=== PATIENT | male | born 1990 | race Caucasian/White ===

== ENCOUNTER 2019-11-26 23:50 | Emergency (ER) | payer OTHER, SELFPAY ==
[2019-11-26 23:55] VITALS: BP 203/106; PULSE 72; RESP 20; TEMP 36.8; O2SAT 99
[2019-11-27 00:11] VITALS: BP 161/102; PULSE 74; RESP 18; O2SAT 98
--- NOTE | 2019-11-27 00:28 | ED.DENTAL ---
HPI - Dental/Oral General Chief complaint: Dental/Oral Stated complaint: dental pain Time Seen by Provider: 11/27/19 00:12 Source: patient Mode of arrival: ambulatory Limitations: no limitations History of Present Illness HPI Narrative: Patient is a 29-year-old male who presents to the emergency department with complaint of toothache. Patient complaints of right lower molar pain. Patient has history of dental decay with filling to that tooth and reports he has had pain over the past couple of months. Patient states he fractured the tooth a few days ago and has had constant pain since that time. Patient states he saw a dentist a few weeks ago and was prescribed amoxicillin for infection and referred to [facility] for further care of his tooth. Patient states he just turned in the paperwork and has yet to receive an appointment. Patient was seen at [facility] and [facility] yesterday and prescribed clindamycin, ibuprofen, and tramadol. Patient has not had any relief, thus presents to the emergency department today. Patient denies any other symptoms or complaints. MD Complaint: tooth pain Location: Tooth # (30) Onset (ago): month(s) Duration: worsening (Was intermittent, now constant past few days) Relieving factors: nothing Context: history of dental caries Treatment prior to arrival: oral analgesic and other (Antibiotic) Related Data Allergies Allergy/AdvReac Type Severity Reaction Status Date / Time bee pollen Allergy Unknown Swelling Verified 11/27/19 00:01 pollen extracts Allergy Unknown Swelling Verified 11/27/19 00:01 Review of Systems Review of Systems: All systems reviewed & are unremarkable except as noted in HPI and below PMFSH Past Medical History Medical History (Updated 11/27/19 @ 00:39 by Tasha Davis MD) No significant past medical history Family History Family History (Updated 07/11/16 @ 11:12 by DOCTOR UNKNOWN) Mother Family history of malignant neoplasm of breast in first degree relative Grandparent Carcinoma of colon Social History Social History Smoking status: Current every day smoker Alcohol intake: current Substance use type: marijuana Gender identity (if verbalized by the patient): Male Exam Const: General: cooperative, no acute distress and alert Nutritional Appearance: obese Orientation/consciousness: patient oriented x3 Limitations: no limitations HENMT: Mouth: Yes lip normal and Yes moist mucous membranes Teeth and gingiva: abnormal tooth and associated gingiva lower right first molar tender, enamel fractured, dentin fractured, pulp exposed and other (decay present); without any associated gingival edema and without associated gingival fluctuance and caries Throat: posterior oropharynx normal and uvula midline Neck: Neck: normal visual inspection, no lymphadenopathy, no anterior neck swelling and No submandibular swelling Resp: Effort & Inspection: normal respiratory effort Skin: General skin exam: normal color Neuro: General: patient oriented x3 Cognition (Neuro): normal cognition Speech: normal speech Extrem: General: normal to inspection, full ROM and no clubbing, cyanosis or edema Psych: Mental Status: mental status grossly normal Affect: normal affect Attitude: cooperative Course Course Emergency Course: Patient advised importance of continuing current medications and following up with dentist for further care. Patient advised on the importance of dental follow-up as he will require dental procedure to address his pathology causing pain. Vital Signs Vital signs: Vital Signs Temperature 98.3 F 11/26/19 23:55 Pulse Rate 72 11/26/19 23:55 Respiratory Rate 20 11/26/19 23:55 Blood Pressure 203/106 H 11/26/19 23:55 Pulse Oximetry 99 11/26/19 23:55 Temperature 98.3 F 11/26/19 23:55 Pulse Rate 74 11/27/19 00:11 Respiratory Rate 18 11/27/19 00:11 Blood Pressure 161/102 H 11/27/19 00:11 Pulse Oximetry
== END 2019-11-27 01:02 | disposition home or self-care (01) ==
PROVIDERS: Emergency Provider Emergency Medicine
DX: K08.89 Other specified disorders of teeth and supporting structures (principal); F17.200 Nicotine dependence, unspecified, uncomplicated
CPT/HCPCS: 99281

== ENCOUNTER 2020-07-25 19:40 | Emergency (ER) | payer OTHER, SELFPAY ==
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
--- NOTE | ~2020-07-25 | CT_ITS ---
EXAMINATION: CT abdomen pelvis wo con DATE: 07/25/2020 21:44 INDICATION: Right abdominal and back pain TECHNIQUE: Computed tomography (CT) of the abdomen and pelvis was performed without intravenous contr ast. Automated exposure control and iterative reconstruction technique were employed. Exam dose: 123 1.11 mGy-cm total exam DLP. COMPARISON: 07/25/2020 scrotal ultrasound/Doppler FINDINGS: Normal heart size. No pericardial or pleural effusion. Minimal focal groundglass infiltrate or atelectasis in the posterolateral right lower lobe; the lung bases are otherwise clear. Small sliding hiatal hernia. The liver, gallbladder, bile ducts, spleen, pancreas, pancreatic duct and adrenal glands are unremark able. 4 mm nonobstructing mid right renal calculus. 2.5 mm nonobstructing upper pole left renal calculus. No renal space occupying mass lesion is evident . Normal caliber of the abdominal aorta. No intraperitoneal or retroperitoneal or pelvic mass lesion or adenopathy or ascites. The urinary bladder is unremarkable. The prostate gland is unremarkable excep t for minimal calcification. Normal appendix. No bowel obstruction, bowel wall thickening, pneumatosis or intraperitoneal free air . Skeletal structures are unremarkable. IMPRESSION: Small sliding hiatal hernia 4 mm nonobstructing mid right renal calculus and 2.5 mm nonobstructing upper pole left renal calculus Reviewed, dictated and finalized at Location A. Reviewed, dictated and finalized at location A. IMPRESSION: Small sliding hiatal hernia 4 mm nonobstructing mid right renal calculus and 2.5 mm nonobstructing upper po le left renal calculus
[2020-07-25 19:42] VITALS: BP 157/99; PULSE 106; RESP 18; TEMP 36.3; O2SAT 100
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
[2020-07-25] MEDS: IBUPROFEN 600 MG TABLET PO (20:44)
--- NOTE | 2020-07-25 20:53 | PC.NURSE ---
Patient to ultrasound via wheelchair.
[2020-07-25 21:08] LABS: Add Urine Microscopic? NO; Appearance Urine Clear (Clear); Bilirubin Urine Negative (Negative); Blood Urine Negative (Negative); Color Urine Yellow (Yellow); Glucose Urine UA Negative (Negative); Ketones Urine Negative (Negative); Leukocyte Esterase Ur Negative LEU/UL (Negative); Mucus Urine Rare /lpf; Nitrate Urine Negative (Negative); Protein Urine Negative (Negative); RBC Urine 0-2 /hpf (0-2); Specific Grav Ur 1.015 (1.001-1.035); Squamous Epithelial Cell Urine Rare /hpf (Few); Urobilinogen Urine Negative mg/dL (<2.0); WBC Urine 0-3 /hpf
[2020-07-25 21:25] LABS: Basophils Absolute Auto 0.1 K/mm3 (0.0-0.1); Basophils Percent Auto 0.4 % (0.2-1.2); Eosinophils Absolute Auto 0.2 K/mm3 (0-0.3); Eosinophils Percent Auto 1.1 % (0-4.4); Hematocrit 44.5 % (42.0-52.0); Hemoglobin 15.6 g/dL (14.0-18.0); Immature Granulocyte Absolute 0.06 K/mm3 (0.00-0.031); Immature Granulocyte Percent A 0.4 % (0-0.5); Lymphocytes Absolute Auto 3.64 K/mm3 (0.9-3.2); Lymphocytes Percent Auto 26.5 % (18.3-44.2); Mean Corpuscular HGB Conc 35.1 g/dl (32-36); Mean Corpuscular Hemoglobin 30.7 pg (26-34); Mean Corpuscular Volume 87.6 fl (80-100); Mean Platelet Volume 9.3 fl (7.4-10.4); Monocytes Absolute Auto 0.8 K/mm3 (0.1-0.6); Monocytes Percent Auto 5.6 % (2.6-8.5); Neutrophils Absolute Auto 9.1 K/mm3 (1.3-6.7); Platelet Count Result 319 k/mm3 (150-375); Red Blood Count 5.08 M/mm3 (4.6-6.20); Red Cell Distribution Width 11.7 % (11.5-14.5); White Blood Count 13.7 K/mm3 (4.5-10.0)
[2020-07-25 21:37] LABS: Alanine Aminotransferase 48 U/L (4-50); Albumin Level 4.7 g/dL (3.5-5.1); Alkaline Phosphatase 93 U/L (38-126); Anion Gap 11 mmol/L (8-16); Aspartate Amino Transferase 32 U/L (17-59); Bilirubin,Total 0.2 mg/dL (0.2-1.3); Blood Urea Nitrogen 7 mg/dL (9-20); Calcium 9.7 mg/dL (8.4-10.2); Carbon Dioxide 24 mmol/L (22-30); Chloride 105 mmol/L (98-107); Estimated CRCL calculation 153 ml/min; Estimated Glomerular Filt Rate > 60; Glucose 119 mg/dL (75-110); Potassium 3.8 mmol/L (3.4-5.0); Sodium 140 mmol/L (137-145)
--- NOTE | 2020-07-25 21:38 | PC.NURSE ---
Patient to CT via wheelchair.
[2020-07-25 22:24] VITALS: BP 154/70; PULSE 84; RESP 16; O2SAT 99
== END 2020-07-25 22:25 | disposition home or self-care (01) ==
PROVIDERS: Emergency Provider Emergency Medicine; PCP Nurse Practitioner Family
DX: M54.5 Low back pain (principal); F17.200 Nicotine dependence, unspecified, uncomplicated
CPT/HCPCS: 36415; 74176; 76870; 80053; 81003; 85025; 93976; 99284; A9270

== ENCOUNTER 2020-11-21 19:38 | Emergency (ER) | payer OTHER, SELFPAY ==
--- NOTE | ~2020-11-21 | XR_ITS ---
EXAMINATION: XR chest 1V portable EXAM DATE: 11/21/2020 19:58 INDICATION: Mid chest pain, tightness. TECHNIQUE: Portable AP frontal chest x-ray was obtained. There is no prior study for comparison. FINDINGS: The lungs are clear. There are no pleural effusions. The cardiomediastinal silhouette is within normal limits. There is no pneumothorax suspected. The bones and soft tissues are unremarkab le. IMPRESSION: No acute cardiopulmonary findings. Reviewed, dictated and finalized at location A. RINARY NURSE
[2020-11-21 19:41] VITALS: BP 175/103; PULSE 104; RESP 16; TEMP 36.6; O2SAT 97
--- NOTE | 2020-11-21 19:48 | ECG_ITS ---
Measurements Intervals [place] Rate: 106 P: 66 NE: 179 QRS: 53 QRSD: 105 T: 34 QT: 323 QTc: 430 Interpretive Statements SINUS TACHYCARDIA BASELINE ARTIFACT- I, III, AVR, AVL, AVF ABNORMAL ECG Electronically Signed On 11-21-2020 21:24:46 HEAD SAWYER by Mikel Hoang D.O.
--- NOTE | 2020-11-21 19:52 | ED.GENADULT ---
HPI - General Adult General Chief complaint: Chest Pain Stated complaint: chest pain Time Seen by Provider: 11/21/20 19:42 History of Present Illness HPI narrative: Patient 30-year-old gentleman who presents the emergency department with chief complaint of chest pain. Patient reports that he was vaping and had a sudden onset left-sided sharp pain in his chest. Patient states the pain was worse with exhalation and worse with movement. The patient states the pain is sharp reports it radiated to his back. Patient states the pain is improved somewhat but reports that he had no diaphoresis and no shortness of breath. Related Data Allergies Allergy/AdvReac Type Severity Reaction Status Date / Time bee pollen Allergy Unknown Swelling Verified 07/25/20 19:45 pollen extracts Allergy Unknown Swelling Verified 07/25/20 19:45 Review of Systems Review of Systems: Narrative: A 10 system review of systems was completed on the patient and is negative except for what is stated in the HPI. Nursing and ancillary documentation was reviewed. PMFSH Past Medical History Medical History No significant past medical history Family History Family History Mother Family history of malignant neoplasm of breast in first degree relative Grandparent Carcinoma of colon Social History Social History Smoking status: Current every day smoker Alcohol intake: current Substance use type: marijuana Gender identity (if verbalized by the patient): Male Exam Narrative: Exam Narrative: GENERAL: Well-appearing, well-nourished, and in no acute distress. HEAD: Normocephalic, atraumatic. EYES: PERRLA and EOMI. ENT: Nares clear, no rhinorrhea or epistaxis. Mucous membranes moist. NECK: Supple. CHEST: Clear to auscultation. No respiratory distress. Tenderness to palpation of the left sternal border reproduces the pain HEART: Regular rate and rhythm. No murmur heard. Normal peripheral pulses. ABDOMEN: Soft, nontender, nondistended, normal active bowel sounds. EXTREMITIES: Normal range of motion. No edema. SKIN: Warm, dry, no rash. NEURO: No focal deficits. Alert and oriented x3. PSYCH: Normal mood and affect. Course Course Emergency Course: EKG is a sinus rhythm with a rate of [address] elevation or ST depression noted Vital Signs Vital signs: Vital Signs Temperature 36.6 C 11/21/20 19:41 Pulse Rate 104 H 11/21/20 19:41 Respiratory Rate 16 11/21/20 19:41 Blood Pressure 175/103 H 11/21/20 19:41 Pulse Oximetry 97 11/21/20 19:41 Temperature 36.6 C 11/21/20 20:43 Pulse Rate 100 11/21/20 20:43 Respiratory Rate 21 H 11/21/20 20:43 Blood Pressure 136/90 11/21/20 20:43 Pulse Oximetry 98 11/21/20 20:43 Medical Decision Making Vital Signs Vital Signs: Vital Signs Temperature 36.6 C 11/21/20 19:41 Pulse Rate 104 H 11/21/20 19:41 Respiratory Rate 16 11/21/20 19:41 Blood Pressure 175/103 H 11/21/20 19:41 Pulse Oximetry 97 11/21/20 19:41 Temperature 36.6 C 11/21/20 20:43 Pulse Rate 100 11/21/20 20:43 Respiratory Rate 21 H 11/21/20 20:43 Blood Pressure 136/90 11/21/20 20:43 Pulse Oximetry 98 11/21/20 20:43 Lab Data Result diagrams: 11/21/20 19:56 11/21/20 19:56 Labs: Lab Results 11/21/20 11/21/20 11/21/20 Range/Units 19:56 19:56 19:56 WBC 13.8 H (4.5-10.0) K/mm3 RBC 5.04 (4.6-6.20) M/mm3 Hgb 15.6 (14.0-18.0) g/dL Hct 44.0 (42.0-52.0) % MCV 87.3 (80-100) fl MCH 31.0 (26-34) pg MCHC 35.5 (32-36) g/dl RDW 12.1 (11.5-14.5) % Plt Count 310 (150-375) k/mm3 MPV 9.6 (7.4-10.4) fl Immature Gran % (Auto) 0.3 (0-0.5) % Neut % (Auto) 54.7 (45.5-73.1) % Lymph % (Auto) 36.5 (18.3-44.2) % Loving % (Auto)
[2020-11-21] MEDS: ASPIRIN 81 MG CHEWABLE TABLET 324 MG PO (19:57)
[2020-11-21] MEDS: KETOROLAC 30 MG/ML VIAL (*BKC) IV PUSH (19:57)
[2020-11-21 20:02] LABS: Basophils Absolute Auto 0.1 K/mm3 (0.0-0.1); Basophils Percent Auto 0.4 % (0.2-1.2); Eosinophils Absolute Auto 0.2 K/mm3 (0-0.3); Eosinophils Percent Auto 1.7 % (0-4.4); Hemoglobin 15.6 g/dL (14.0-18.0); Immature Granulocyte Absolute 0.04 K/mm3 (0.00-0.031); Immature Granulocyte Percent A 0.3 % (0-0.5); Lymphocytes Absolute Auto 5.02 K/mm3 (0.9-3.2); Lymphocytes Percent Auto 36.5 % (18.3-44.2); Mean Corpuscular HGB Conc 35.5 g/dl (32-36); Mean Corpuscular Volume 87.3 fl (80-100); Mean Platelet Volume 9.6 fl (7.4-10.4); Monocytes Absolute Auto 0.9 K/mm3 (0.1-0.6); Monocytes Percent Auto 6.4 % (2.6-8.5); Neutrophils Absolute Auto 7.5 K/mm3 (1.3-6.7); Neutrophils Percent Auto 54.7 % (45.5-73.1); Platelet Count Result 310 k/mm3 (150-375); Red Blood Count 5.04 M/mm3 (4.6-6.20); Red Cell Distribution Width 12.1 % (11.5-14.5); White Blood Count 13.8 K/mm3 (4.5-10.0)
[2020-11-21 20:13] LABS: Alanine Aminotransferase 44 U/L (4-50); Albumin Level 4.7 g/dL (3.5-5.1); Alkaline Phosphatase 107 U/L (38-126); Anion Gap 10 mmol/L (8-16); Aspartate Amino Transferase 32 U/L (17-59); Bilirubin,Total 0.4 mg/dL (0.2-1.3); Blood Urea Nitrogen 11 mg/dL (9-20); Calcium 9.8 mg/dL (8.4-10.2); Carbon Dioxide 27 mmol/L (22-30); Chloride 105 mmol/L (98-107); Estimated CRCL calculation 119 ml/min; Estimated Glomerular Filt Rate > 60; Glucose 101 mg/dL (75-110); Lipase 68 U/L (23-300); Partial Thromboplastin Time 29.7 SECONDS (22.3-36.8); Potassium 3.4 mmol/L (3.4-5.0); Sodium 142 mmol/L (137-145)
[2020-11-21 20:16] LABS: Prothrombin Time 13.3 Seconds (11.1-14.7)
[2020-11-21 20:17] LABS: D Dimer 0.27 ug/mL (<0.48)
[2020-11-21 20:25] LABS: NT Pro B Type Natriuretic Pept 42 PG/ML (5-100); Troponin I < 0.012 ng/mL (0.000-0.034)
[2020-11-21 20:43] VITALS: BP 136/90; PULSE 100; RESP 21; TEMP 36.6; O2SAT 98
[2020-11-21 21:24] VITALS: BP 132/88; PULSE 71; RESP 18; TEMP 36.6; O2SAT 97
== END 2020-11-21 21:26 | disposition home or self-care (01) ==
PROVIDERS: Emergency Provider Emergency Medicine; PCP Nurse Practitioner Family
DX: R07.89 Other chest pain (principal); M94.0 Chondrocostal junction syndrome [Tietze]; R00.0 Tachycardia, unspecified; F17.290 Nicotine dependence, other tobacco product, uncomplicated
CPT/HCPCS: 36415; 71045; 80053; 83690; 83880; 84484; 85025; 85380; 85610; 85730; 93005; 96374; 99284; A9270; J1885

== ENCOUNTER 2020-12-17 06:31 | Outpatient (CLI) | payer OTHER, SELFPAY ==
--- NOTE | 2020-12-17 | ECHO_ITS ---
Patient Info Name: Renan Combs Age: 30 years : 1990 Gender: Male Ht: 67 in Wt: 260 lbs BSA: 2.42 m2 HR: 78 bpm BP: 134 / 88 mmHg Heart Rhythm: Sinus Rhythm Exam Date: 12/17/2020 6:56 AM Exam Location: [facility] Patient Status: Outpatient Admit Date: 12/17/2020 Staff Ordering Physician: FilipeAntonella NP [employer]: Larisa Blackburn RDCS Attending Provider: Filipe, Antonella YANG Exam Type: CA echo doppler color flow Study Info Indications R00.2 - Palpitations Complete two-dimensional, color flow and Doppler transthoracic echocardiogram is performed. Summary 1. Complete two-dimensional, color flow and Doppler transthoracic echocardiogram is performed. 2. Left ventricular chamber dimension is normal. 3. Left ventricular systolic function is normal, estimated at 60-65%. 4. The left ventricular diastolic function is normal. 5. E/e' 6 is not elevated. 6. There is trace tricuspid valve regurgitation. 7. No pulmonary hypertension, estimated pulmonary arterial systolic pressure is 22 mmHg. Left Ventricle E/e' 6 is not elevated. Left ventricular chamber dimension is normal. Left ventricular systolic function is normal, estimated at 60-65%. The left ventricular diastolic function is normal. Right Ventricle Right ventricular systolic function is normal and normal TAPSE 1.8 cm. Right ventricular chamber dimension is normal. Left Atria Left atrial chamber dimension is normal. Right Atria Right atrial chamber dimension is normal. Aortic Valve The aortic valve is trileaflet. There is no aortic valve stenosis. There is no aortic valve regurgitation. Pulmonic Valve There is no pulmonic regurgitation. Mitral Valve There is no mitral valve stenosis. There is no mitral valve regurgitation. Tricuspid Valve There is trace tricuspid valve regurgitation. No pulmonary hypertension, estimated pulmonary arterial systolic pressure is 22 mmHg. Pericardium/Pleural There is no pericardial effusion. Inferior Vena Cava Normal inferior vena cava with >50% collapse upon inspiration consistent with normal right atrial pressure, 5 mmHg. Aorta The aortic root size at the sinus of Valsalva is normal. Left Ventricular Outflow Tract Name Value Normal LVOT 2D LVOT Diameter 2.1 cm LVOT Doppler LVOT Peak Gradient 3 mmHg LVOT Mean Gradient 2 mmHg LVOT VTI 21 cm LVOT VTI/AV VTI Ratio 0.7 LVOT Stroke Volume 69 ml LVOT CO 11.6 l/min LVOT CI 4.8 l/min/m2 Pulmonic Valve Name Value Normal RVOT Doppler RVOT Peak Gradient 2 mmHg PV Doppler
== END 2020-12-17 06:32 | disposition home or self-care (01) ==
PROVIDERS: PCP Nurse Practitioner Family; Visit Provider Nurse Practitioner Family
DX: R00.2 Palpitations (principal)
CPT/HCPCS: 93306

== ENCOUNTER 2021-05-07 10:05 | Emergency (ER) | payer OTHER, SELFPAY ==
--- NOTE | ~2021-05-07 | XR_ITS ---
EXAMINATION: XR chest 2V 05/07/2021 11:40 INDICATION: Chest pain PROCEDURE: 2 view chest COMPARISON: 11/21/2020 FINDINGS: The lungs are clear. The cardiomediastinal silhouette is within normal limits. There are no pleural effusions. There is no pneumothorax suspected. IMPRESSION: 1: NO ACUTE CARDIOPULMONARY DISEASE. Reviewed, dictated and finalized at location A.
[2021-05-07 10:21] VITALS: BP 151/98; PULSE 96; RESP 20; TEMP 37; O2SAT 100
[2021-05-07 10:24] VITALS: BP 135/90; PULSE 96; RESP 16; TEMP 36.9; O2SAT 98
--- NOTE | 2021-05-07 10:33 | ECG_ITS ---
Measurements Intervals [place] Rate: 79 P: 43 [place]: 183 QRS: 34 QRSD: 99 T: 30 QT: 362 QTc: 416 Interpretive Statements SINUS RHYTHM CONSIDER INFERIOR INFARCT, AGE INDETERMINATE ABNORMAL ECG Electronically Signed On 05-07-2021 16:49:30 CDT by Mikel Hoang D.O.
[2021-05-07 10:49] VITALS: PULSE 77
--- NOTE | 2021-05-07 11:31 | ED.GENADULT ---
HPI - General Adult General Chief complaint: Unspecified Stated complaint: arm and back pain Time Seen by Provider: 05/07/21 10:24 Source: patient Mode of arrival: ambulatory Limitations: no limitations History of Present Illness HPI narrative: Patient presents for evaluation of left-sided chest pain. Symptom onset 05 100 this morning. Pain lasted a few minutes, described as squeezing, rated 2 out of 10 in severity. Denies any chest pain at the present time. He states that he has had random sporadic pain in the chest, neck, extremities x4 over the last few months. He was seen here in November for similar symptoms and had negative cardiac markers and a negative D-dimer. He was discharged with a diagnosis of costochondritis. He states he is called EMS twice recently for these symptoms while out of town in [place] and [place] respectively. Both times he had an EKG and serum glucose checked by EMS but declined going to the hospital. States he saw his primary care doctor for similar symptoms and she ordered an echocardiogram, which she states resulted as normal. He states that he is primary care doctor thought that his symptoms may be related to anxiety. He does have some increased stress associated with being the sole breadwinner, but he feels like his stress levels are manageable. He denies any shortness of breath, cough. He states that sometimes during these episodes he notes that his heart beat is more noticeable. She does smoke about a half a pack per day and also smokes marijuana but denies any illicit drugs. Drinks ETOH socially. Related Data Allergies Allergy/AdvReac Type Severity Reaction Status Date / Time bee pollen Allergy Unknown Swelling Verified 07/25/20 19:45 pollen extracts Allergy Unknown Swelling Verified 07/25/20 19:45 Review of Systems Review of Systems: CONSTITUTIONAL: Denies fever, chills, or sweats. EYES: Denies visual changes, redness, or discharge. ENT: Denies rhinorrhea, congestion, sore throat, or otalgia. CARDIOVASCULAR: Reports recent chest pain and sensation that his heart beat is more noticeable . Denies edema. RESPIRATORY: Denies cough or dyspnea. GASTROINTESTINAL: Denies abdominal pain, nausea, vomiting, or diarrhea. GENITOURINARY: Denies dysuria or hematuria. SKIN: Denies rash or itching. MUSCULOSKELETAL: Reports sporadic pain in the neck, chest, extremities recently, not currently. NEUROLOGIC: Denies headache, numbness, dizziness, or weakness. PSYCHIATRIC: Denies anxiety or depression. PMFSH Past Medical History Medical History No significant past medical history Family History Family History Mother Family history of malignant neoplasm of breast in first degree relative Grandparent Carcinoma of colon Social History Social History Smoking status: Current every day smoker Alcohol intake: current Substance use type: marijuana Gender identity (if verbalized by the patient): Male Exam Narrative: GENERAL: Well-appearing, well-nourished, and in no acute distress. HEAD: Normocephalic, atraumatic. EYES: PERRLA and EOMI. ENT: Nares clear, no rhinorrhea or epistaxis. Mucous membranes moist. Oropharynx without tonsillar hypertrophy exudate or other lesions. Bilateral TMs pearly enriquez nonbulging NECK: Supple. No adenopathy or masses. No carotid bruits or JVD CHEST: Clear to auscultation. No respiratory distress. No wheezes rales or rhonchi HEART: Regular rate and rhythm. No murmur heard. Normal peripheral pulses. ABDOMEN: Soft, nontender, nondistended, normal active bowel sounds. EXTREMITIES: Normal range of motion. No edema. SKIN: Warm, dry, no rash. NEURO: No focal deficits. Alert and oriented x3. PSYCH: Normal mood and affect. Course Course Emergency Course: Is a 30-year-old male who presented wit
[2021-05-07 11:49] VITALS: BP 130/77; PULSE 75; RESP 13; O2SAT 96
[2021-05-07 12:13] LABS: Basophils Absolute Auto 0.1 K/mm3 (0.0-0.1); Basophils Percent Auto 0.6 % (0.2-1.2); Eosinophils Absolute Auto 0.1 K/mm3 (0-0.3); Eosinophils Percent Auto 1.1 % (0-4.4); Hematocrit 45.2 % (42.0-52.0); Hemoglobin 15.7 g/dL (14.0-18.0); Immature Granulocyte Absolute 0.06 K/mm3 (0.00-0.031); Immature Granulocyte Percent A 0.6 % (0-0.5); Lymphocytes Absolute Auto 2.91 K/mm3 (0.9-3.2); Lymphocytes Percent Auto 28.3 % (18.3-44.2); Mean Corpuscular HGB Conc 34.7 g/dl (32-36); Mean Corpuscular Hemoglobin 30.4 pg (26-34); Mean Corpuscular Volume 87.4 fl (80-100); Mean Platelet Volume 9.5 fl (7.4-10.4); Monocytes Absolute Auto 0.7 K/mm3 (0.1-0.6); Monocytes Percent Auto 6.3 % (2.6-8.5); Neutrophils Absolute Auto 6.5 K/mm3 (1.3-6.7); Neutrophils Percent Auto 63.1 % (45.5-73.1); Platelet Count Result 296 k/mm3 (150-375); Red Blood Count 5.17 M/mm3 (4.6-6.20); Red Cell Distribution Width 11.9 % (11.5-14.5); White Blood Count 10.3 K/mm3 (4.5-10.0)
[2021-05-07 12:22] LABS: Alanine Aminotransferase 47 U/L (4-50); Albumin Level 4.6 g/dL (3.5-5.1); Alkaline Phosphatase 89 U/L (38-126); Anion Gap 9 mmol/L (8-16); Aspartate Amino Transferase 33 U/L (17-59); Bilirubin,Total 0.6 mg/dL (0.2-1.3); Blood Urea Nitrogen 10 mg/dL (9-20); Calcium 9.6 mg/dL (8.4-10.2); Carbon Dioxide 22 mmol/L (22-30); Chloride 103 mmol/L (98-107); Creatine Kinase 101 U/L (55-170); Estimated CRCL calculation 150 ml/min; Estimated Glomerular Filt Rate > 60; Glucose 101 mg/dL (65-110); Magnesium 2.1 mg/dL (1.6-2.3); Sodium 134 mmol/L (137-145)
[2021-05-07 12:23] LABS: Prothrombin Time 12.7 Seconds (11.1-14.7)
[2021-05-07 12:24] LABS: Partial Thromboplastin Time 30.6 SECONDS (22.3-36.8)
[2021-05-07 12:34] LABS: Troponin I < 0.012 ng/mL (0.000-0.034)
[2021-05-07 12:49] LABS: D Dimer 0.27 ug/mL (<0.48)
[2021-05-07 13:30] VITALS: BP 125/88; PULSE 61; RESP 18; O2SAT 97
== END 2021-05-07 13:33 | disposition home or self-care (01) ==
PROVIDERS: Emergency Provider Nurse Practitioner; PCP Nurse Practitioner Family
DX: F43.9 Reaction to severe stress, unspecified (principal); R07.89 Other chest pain; F17.210 Nicotine dependence, cigarettes, uncomplicated; R94.31 Abnormal electrocardiogram [ECG] [EKG]
CPT/HCPCS: 36415; 71046; 80053; 82550; 83735; 84484; 85025; 85380; 85610; 85730; 93005; 99284